=== PATIENT | male | born 1955 | race Hispanic/Latino ===

== ENCOUNTER 2017-08-16 05:48 | Day surgery (SDC) | payer MEDICAID ==
[~2017-08-16] VITALS: Ht 165.1 cm; Wt 86.2 kg
[~2017-08-16 05:48] MED LIST: AMLO5TAB2 PO; ASPI-555 PO; HYDR12.54 PO; LISI40TA4 PO; METF10004 PO; METO-409 PO; SIMV40TA5 PO
[2017-08-16] MEDS ORDERED: SODIUM CHLORIDE 0.9% 1000ML 1,000 ML IV ONE (06:08)
[2017-08-16 06:46] VITALS: BP 178/94
[2017-08-16] MEDS ORDERED: PROPOFOL 1000 MG/100 ML 100 ML IV ONE (08:49)
== END 2017-08-16 10:00 | disposition home or self-care (01) ==
LOC: DAH 05:48 → SUH 05:48
PROVIDERS: ATTEND Internal Medicine
DX: K63.5 Polyp of colon (principal); I10 Essential (primary) hypertension; E11.9 Type 2 diabetes mellitus without complications; E78.4 Other hyperlipidemia; Z79.4 Long term (current) use of insulin
CPT/HCPCS: 45380; 45385; 82948 ×2; 88305; A4606; J2704; J7030